=== PATIENT | female | born 1950 | race Caucasian/White ===

== ENCOUNTER → 2019-04-05 07:38 | Outpatient (CLI) | payer MEDICARE, OTHER, SELFPAY ==
--- NOTE | 2019-04-05 | DI.MG.S_ITS ---
BILATERAL DIGITAL SCREENING MAMMOGRAM 3D/2D WITH CAD: 04/05/2019 CLINICAL: Routine screening. Family history of breast cancer. Comparison is made to exams dated: 08/19/2017 mammogram, 04/10/2016 mammogram, and 03/03/2014 mammogram - [facility]. The tissue of both breasts is heterogeneously dense. This may lower the sensitivity of mammography. Current study was also evaluated with a Computer Aided Detection (CAD) system. There are benign post operative findings in the right breast. No significant masses, calcifications, or other findings are seen in either breast. There has been no significant interval change. IMPRESSION: There is no mammographic evidence of malignancy. A 1 year screening mammogram is recommended. This exam was interpreted at Station ID: [id number]. NOTE: For mammograms, a report in lay terms will be sent to the patient. Approximately 15% of breast malignancies will not be visualized mammographically. In the management of a palpable breast mass, a negative mammogram must not discourage biopsy of a clinically suspicious lesion. Electronically Signed By: Celestine [email or web address]/[email or web address]:04/05/2019 08:44:08 letter sent: Normal Exam ACR BI-RADS Category 2: Benign Finding(s) 3342F
== END ==
PROVIDERS: Family Provider Family Medicine; PCP Family Medicine; Visit Provider Family Medicine
DX: Z12.31 Encounter for screening mammogram for malignant neoplasm of breast (principal); Z80.3 Family history of malignant neoplasm of breast
CPT/HCPCS: 77063; 77067

== ENCOUNTER 2023-04-18 09:41 | Emergency (ER) | payer MEDICARE, OTHER, SELFPAY ==
[2023-04-18 09:50] VITALS: BP 145/79; PULSE 80; RESP 18; TEMP 36.6; O2SAT 100; BMI 19.4
--- NOTE | 2023-04-18 10:09 | DI.RAD.S_ITS ---
PROCEDURE: XR HAND LT MIN 3V INDICATIONS: fall, pain to lateral L hand TECHNIQUE: 3 views of the hand(s) acquired. COMPARISON: None. FINDINGS: Bones: No fractures or dislocations. Carpal bones are normally aligned. No suspicious bony lesions. Shortened 5th metatarsal and 5th middle phalanx. First CMC joint space narrowing with associated osteophytosis. Soft tissues: No suspicious soft tissue calcifications. IMPRESSION: No acute bony abnormality. Dictated by: Valdze Bee M.D. on 04/18/2023 at 10:34 Approved by: Valdez Bee M.D. on 04/18/2023 at 10:35
--- NOTE | 2023-04-18 12:05 | ED_ITS ---
HPI - Wound/Laceration General Chief Complaint: Wound/Laceration Stated Complaint: bleeding lac on chin fell om sidewalk Time Seen by Provider: 04/18/23 11:25 Source: patient Mode of arrival: Ambulatory History of Present Illness HPI narrative: This is a 73-year-old woman had a mechanical slip and fall today over her dog onto concrete and caught the bottom of her chin, also her left hand. She had her hand outstretched when she went down. She denies hitting her head, loss of consciousness, neck pain, numbness or tingling, one-sided weakness or any other injuries. She does note that she ?bleeds a lot? every time she has an injury. She states she is not on any blood thinners. Related Data Home Medications Medication Instructions Recorded Confirmed CALCIUM/VITAMIN D (CALCIUM + D 1 tab PO BID ##0 09/06/11 500MG/125UNITS) MAGNESIUM (#LIQUID MAGNESIUM) 400 mg PO BID ##0 09/06/11 VITAMIN D (Vitamin D3) 1,000 unit PO QDAY ##0 09/06/11 Fish Oil 1,000 mg PO BID ##0 10/09/12 Allergies Allergy/AdvReac Type Severity Reaction Status Date / Time amoxicillin AdvReac Nausea Verified 04/18/23 10:08 erythromycin base AdvReac Nausea Verified 04/18/23 10:08 hydroxyzine AdvReac Headache Verified 04/18/23 10:08 Sulfa (Sulfonamide AdvReac Dizziness Verified 04/18/23 10:08 Antibiotics) tramadol AdvReac Nausea Verified 04/18/23 10:08 Review of Systems Review of Systems Narrative: See HPI Patient History Social History Smoking Status: Never smoker Smoking Status: Never smoker Substance Use Type: does not use Exam Narrative Exam Narrative: GENERAL: 73 year old patient appears stated age. Well-developed patient, in mild distress. HEAD: There is an approximately 1 cm lateral laceration on the underside of the patient's chin anteriorly. Bleeding is not controlled and less direct pressure is placed, there is small arterial Pumper that is controlled with direct pressure. Otherwise Atraumatic. Normocephalic. EYES: Pupils equal round and reactive. Extraocular motions intact. No scleral icterus. No injection or drainage. ENT: Nose without bleeding, purulent drainage. Throat without erythema, tonsill ar hypertrophy or exudate. Airway patent. NECK: Trachea midline. Non tender CARDIOVASCULAR: Regular rate and rhythm without murmurs, gallops, or rubs. RESPIRATORY: Clear to auscultation. Breath sounds equal bilaterally. No wheezes, rales, or rhonchi. GASTROINTESTINAL: Abdomen nondistended. EXTREMITIES: There is tenderness over the medial aspect of the left hand along the 4th and 5th metacarpal and carpals there is slight bruising and swelling noted at the same location. 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 Cap refill is less than 2 seconds. No other edema or joint tenderness. BACK: Nontender without deformity or crepitance. No flank tenderness. NEURO: AOx3. SKIN: No rash or erythema of visible areas Initial Vital Signs Initial Vital Signs: Vital Signs Temperature 97.9 F 04/18/23 09:50 Pulse Rate 80 04/18/23 09:50 Respiratory Rate 18 04/18/23 09:50 Blood Pressure 145/79 H 04/18/23 09:50 Pulse Oximetry 100 04/18/23 09:50 Oxygen Delivery Method Room Air 04/18/23 09:50 Procedures Laceration Repair Laceration 1: Time of procedure: 12:30 Site: face (chin) Size (cm): 1 Depth: simple, single layer Local Anesthetic: lidocaine 2% and with epi Amount of anesthesia used (mL): 2 Pre-repair: wound explored, irrigated extensively and cleansed with chlorhexadine Skin layer closed with: nylon Skin layer suture size: 6-0 Number of sutures: 4 Technique: simple, interrupted Course Orders Ordered: ED Orders 04/18/23 10:09 XR hand LT min 3V Stat Discontinued Medications Lidocaine/Epinephrine (Lidocaine 1% W/Epi) 3 ml SUBCUT NOW ONE Stop: 04/18/23 12:07 Vital Signs Vital signs: Vital Signs - 8 hr 04/18/23 09:50 Temperature 97.9 F Pulse Rate 80 Respiratory Rate 18 Blood Pressure 145/79 H Pulse Oximetry 100 Oxygen Delivery Method Room Air MDM - Wound/Laceration Differential Diagnosis Differential diagnosis: Likely laceration and other (Strain and sprain of left hand/wrist) Medical Records Attestation: I reviewed the patient's medical records. Imaging Data Extremity x-ray #1: My Impression: I agree with Radiology interpretation Radiologist's Impression: [address] [address] XRay Report Signed Patient: Kimberlee Miles MR#: [id number] : 1950 Acct:[id number] Age/Sex: 73 / F Date of Service: 04/18/23 Loc: ED Accession Number: [id number] ?? Procedure: XR hand LT min 3V Ordering Provider: Lucía Jj D.O. PROCEDURE:? XR HAND LT MIN 3V ? INDICATIONS:? fall, pain to lateral L hand ? TECHNIQUE:? 3 views of the hand(s) acquired.? ? COMPARISON:? None. ? FINDINGS:? ? Bones:? No fractures or dislocations.? Carpal bones are normally aligned.? No suspicious bony lesions.? Shortened 5th metatarsal and 5th middle phalanx.? First CMC joint space narrowing with associated osteophytosis. ? Soft tissues:? No suspicious soft tissue calcifications.? ? ? IMPRESSION:? No acute bony abnormality.? Dictated by: Valdez Bee M.D. on 04/18/2023 at 10:34 ? ? Approved by: Valdez Bee M.D. on 04/18/2023 at 10:35?? MDM Narrative Medical decision making narrative: Is a well-appearing 73-year-old woman who presents with concern for a chin laceration with difficulty controlling bleeding as well as left hand pain after she had a mechanical fall today. No other injuries or concerning findings on exam. Wound is repaired as above and procedures, with good result. Patient has no evidence of fracture on her x-ray she is placed in a removable supportive wrist splint for sprain/strain of her left hand/wrist. Patient is advised to follow up closely with primary care provider, stitch removal in 7-8 days, return precautions provided, follow-up plan discussed, all questions answered. Discharge Plan Departure Patient Disposition: Home Clinical Impression: Sprain and strain of left hand, Chin laceration, Fall Instructions: DI for Laceration Repair Activity Restrictions/Additional Instructions: *You have been diagnosed with sprain of left hand/wrist, chin laceration *What to do: *Please continue to take your regular medications as directed. [ ] New medication prescriptions sent to your pharmacy: [ ] [ ] New medication written as a paper prescription [* ] No new medications given *Please follow up with your primary care provider in 2-3 days, call for an appointment. Let them know you were seen in the Emergency Department and that we ask that you be seen in follow up. We will electronically transmit a record of today's note if your PCP is in our system. You will need to have your stitches removed in approximately 7 or 8 days 10 at the most. Because you had a fair amount of bleeding initially do not recommend removing them sooner than this. You can have this done at this ER, an urgent care or your primary care provider's office. *If you do not have a primary care provider please contact the [facility] Resource line at [phone]. They will ask some questions about your medical history and help get you set up with a doctor in the community. *Return to Emergency Department if you should have any new, worsening or concerning symptoms, such as [fever greater than 101 F, shaking chills, worsening pain, persistent vomiting or other bothersome symptoms] Prescriptions: No Action MAGNESIUM (#LIQUID MAGNESIUM) 400 mg PO BID Qty: 0 CALCIUM/VITAMIN D (CALCIUM + D 500MG/125UNITS) 1 tab PO BID Qty: 0 VITAMIN D (Vitamin D3) 1,000 unit PO QDAY Qty: 0 Fish Oil 1,000 mg PO BID Qty: 0 Referrals: Edd Kaiser MD [Primary Care Provider] - Stand Alone Forms: Patient Portal/API
== END 2023-04-18 13:28 | disposition home or self-care (01) ==
PROVIDERS: Emergency Provider Student in an Organized Health Care Education/Training Program; Family Provider Family Medicine; PCP Family Medicine
DX: S63.92XA Sprain of unspecified part of left wrist and hand, initial encounter (principal); S01.81XA Laceration without foreign body of other part of head, initial encounter; W01.0XXA Fall on same level from slipping, tripping and stumbling without subsequent striking against object, initial encounter
CPT/HCPCS: 12011; 73130; 99283; 99284